=== PATIENT | female | born 1940 | race Caucasian/White ===

== ENCOUNTER → 2017-04-01 | Outpatient (CLI) | payer MEDICARE ==
--- NOTE | 2017-04-02 14:16 | MM ---
Reason for exam: screening (asymptomatic). Last mammogram was performed 1 year ago. History: Patient is postmenopausal and history of other cancer. Family history of breast cancer in mother at age 60. Excisional biopsy of the right breast. Took estrogen for 20 years. Physical Findings: A clinical breast exam by your physician is recommended on an annual basis and results should be correlated with mammographic findings. MG Screening Mammo w CAD Bilateral CC and MLO view(s) were taken. Prior study comparison: March 29, 2016, bilateral MG 3d screening mammo w/cad. February 10, 2015, bilateral MG 3d diag mammo w/cad NAZANIN. There are scattered fibroglandular densities. No significant changes when compared with prior studies. ASSESSMENT: Benign, BI-RAD 2 RECOMMENDATION: Routine screening mammogram of both breasts in 1 year.
== END | disposition home or self-care (01) ==
LOC: RADMAMWWP 11:34
PROVIDERS: ATTEND Internal Medicine Geriatric Medicine
DX: Z12.31 Encounter for screening mammogram for malignant neoplasm of breast (principal)

== ENCOUNTER → 2017-04-09 | Outpatient (CLI) | payer MEDICARE ==
[2017-04-09 12:58] LABS: Blood Urea Nitrogen 18 mg/dL (7-17); Non-African American GFR(MDRD) >60 (>60 ml/min/1.73 sqM)
--- NOTE | 2017-04-09 14:23 | CT ---
EXAMINATION TYPE: CT abdomen w con DATE OF EXAM: 04/09/2017 COMPARISON: NONE INDICATION: RUQ pain hx of hemangioma. Hemangioma protocol. Prior on 09.12.10. DLP: 938.7 mGycm, Automated exposure control for dose reduction was used. CONTRAST: 100ml mL of Omnipaque 300. Study performed with Oral Contrast TECHNIQUE: Axial images were obtained from above the diaphragm to the pubic rami in the axial plane a t 5 mm thick sections. Reconstructed images are reviewed on the computer in the coronal plane. FINDINGS: Limited CT sections are obtained the lung bases. The lung bases are clear. Coronary artery calcific ation is present. Small hiatal hernia is not excluded. CT ABDOMEN: Liver: Pre and postcontrast imaging is performed through the liver. Hemangioma protocol was utilized. There is a irregular peripherally enhancing area within the inferior right lobe liver. On delayed ketty ges this area has homogenous enhancement and is estimated to measure 3.1 x 2.5 cm in size. This area appears stable in transverse dimension size although larger in AP dimension from the images of 2010 a nd can be compatible with a hemangioma. Spleen: Normal Pancreas: Normal Adrenal glands: The adrenal glands are normal. Gallbladder: Surgically absent. Kidneys: No masses are evident. No hydronephrosis is present. Next renal pelvis is present on the r ight No cysts are present. Delayed images were obtained through the kidneys, which remain unremarkab le. Aorta: Vascular calcification is within the aorta. Inferior vena cava: Normal. Loops of bowel with oral contrast appear unremarkable. There are some loops of bowel with incomplete distention with oral contrast limiting their evaluation. IMPRESSIONS: 1. AP dimension of the suspected hemangioma within the inferior right lobe liver is slightly larger from 2011. However, findings appear compatible with hemangioma with a stable transverse dimension ove r the interval.
== END | disposition home or self-care (01) ==
LOC: RADCTMAIN 12:17
PROVIDERS: ATTEND Internal Medicine Geriatric Medicine
DX: R10.84 Generalized abdominal pain (principal)
CPT/HCPCS: 82565; 84520; 74160; 36415; Q9967

== ENCOUNTER → 2018-05-15 | Outpatient (CLI) | payer MEDICARE ==
--- NOTE | 2018-05-16 10:39 | MM ---
Reason for exam: screening (asymptomatic). Last mammogram was performed 1 year and 1 month ago. History: Patient is postmenopausal and history of other cancer. Family history of breast cancer in mother at age 60. Excisional biopsy of the right breast. Took estrogen for 20 years. Physical Findings: A clinical breast exam by your physician is recommended on an annual basis and results should be correlated with mammographic findings. MG Screening Mammo w CAD Bilateral CC and MLO view(s) were taken. Prior study comparison: April 01, 2017, bilateral MG screening mammo w CAD. March 29, 2016, bilateral MG 3d screening mammo w/cad. The breast tissue is heterogeneously dense. This may lower the sensitivity of mammography. There are benign appearing round vascular calcifications bilaterally. There is no discrete abnormality. ASSESSMENT: Benign, BI-RAD 2 RECOMMENDATION: Routine screening mammogram of both breasts in 1 year.
== END | disposition home or self-care (01) ==
LOC: RADMAMWWP 12:40
PROVIDERS: ATTEND Internal Medicine Geriatric Medicine
DX: Z12.31 Encounter for screening mammogram for malignant neoplasm of breast (principal)
CPT/HCPCS: 77067

== ENCOUNTER → 2020-02-23 | Outpatient (CLI) | payer MEDICARE ==
--- NOTE | 2020-02-24 13:14 | MM ---
Reason for exam: screening (asymptomatic). Last mammogram was performed 1 year and 9 months ago. History: Patient is postmenopausal and history of other cancer. Family history of breast cancer in mother at age 60. Excisional biopsy of the right breast. Took estrogen for 20 years. Physical Findings: A clinical breast exam by your physician is recommended on an annual basis and results should be correlated with mammographic findings. MG Screening Mammo w CAD Bilateral CC and MLO view(s) were taken. Prior study comparison: May 15, 2018, bilateral MG screening mammo w CAD. April 01, 2017, bilateral MG screening mammo w CAD. There are scattered fibroglandular densities. Global asymmetry subareolar right breast unchanged. Benign oil cyst calcifications. No significant changes when compared with prior studies. ASSESSMENT: Negative, BI-RAD 1 RECOMMENDATION: Routine screening mammogram of both breasts in 1 year.
== END | disposition home or self-care (01) ==
LOC: RADMAMWWP 13:26
PROVIDERS: ATTEND Internal Medicine Geriatric Medicine
DX: Z12.31 Encounter for screening mammogram for malignant neoplasm of breast (principal)
CPT/HCPCS: 77067

== ENCOUNTER 2021-04-05 10:05 | Day surgery (SDC) | payer MEDICARE ==
[2021-04-04 08:47] VITALS: BMI 23.9
[~2021-04-05 10:05] MED LIST: DEXAMETHASONE SOD PHOSPHATE 4 MG/ML 1 ML VIAL IV ONE; FAMOTIDINE 20 MG/2 ML VIAL IV PRN; HYDROmorphone 0.5 MG/0.5 ML SYRINGE IVP PRN; LACTATED RINGERS 1,000 ML IV SCH
[2021-04-05 11:09] LABS: Glucose,Whole Blood 105 mg/dL (75-99)
[2021-04-05] MEDS ORDERED: LIDOCAINE 1% (10MG/ML) FOR IV START INTRADERMA ONE (11:12)
[2021-04-05] MEDS: ONDANSETRON 4 MG/2 ML VIAL IVP PRN ×2 (11:12→15:35)
[2021-04-05] MEDS ORDERED: PROPOFOL 10 MG/ML 20 ML VIAL IV ONE (12:51)
[2021-04-05] MEDS ORDERED: fentaNYL (PF) 50 MCG/ML 2 ML AMP ONE (12:51)
[2021-04-05] MEDS ORDERED: LIDOCAINE 1% INJ 10MG/ML (20 ML MDV) ONE (12:51)
[2021-04-05] MEDS ORDERED: MIDAZOLAM 2 MG/2 ML VIAL ONE (12:51)
[2021-04-05] MEDS ORDERED: SUCCINYLCHOLINE CHLORIDE 100 MG/5 ML SYR IV ONE (12:51)
[2021-04-05] MEDS ORDERED: HYDROmorphone (PF) 1 MG/ML ONE (12:51)
[2021-04-05] MEDS ORDERED: ePHEDrine 50 MG/ML 1 ML AMP ONE (12:51)
[2021-04-05] MEDS ORDERED: LIDOCAINE 1% INJ 10MG/ML (20 ML MDV) SQ ONE ×2 (13:23)
[2021-04-05] MEDS ORDERED: LACTATED RINGERS 1,000 ML IV ONE (13:39)
[2021-04-05] MEDS ORDERED: BACITRACIN ZINC 500 UNIT/GM OINT 28.4 GM TUBE TOPICAL ONE (14:44)
--- NOTE | 2021-04-05 14:55 | P.OP ---
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 Fine-needle aspiration showed pleomorphic adenoma and she has elected to proceed with submandibular gland excision Operative Findings: Approximate 3 cm well encapsulated left submandibular gland inferiorly and laterally adjacent to the marginal mandibular branch of facial nerve Description of Procedure: The patient was brought in the operative suite and placed in a supine position. The patient underwent induction of general anesthesia with oral endotracheal intubation without difficulty. The patient was prepped and draped in usual aseptic fashion after the NIM II facial nerve monitor was placed and tested. This tested appropriately. 1% lidocaine with 1-100,000 epinephrine was infused subcutaneously at the incision site left lateral neck. A left lateral neck transverse incision was made 2.5 fingerbreadths below the mandible and was carried sharply through the skin and subcutaneous tissue and platysma layer. The inferior aspect of the submandibular gland was identified and dissection then continued medially down to the deep muscular layer. The lateral aspect of the dissection then continued from inferior to superior identifying the marginal mandibular branch of facial nerve which was dissected from the underlying submandibular gland and the mass itself. This was closely approximated to the mass at the nerve was dissected free from the tumor grossly intact under magnification and was reflected superiorly with the overlying fascia. Dissection then continued on the superior aspect as well as posterior and anterior aspect of the submandibular gland. Wall approaching the medial aspect of the gland the lingual nerve was identified and the defect aspect of the lingual nerve at the margin of the gland was doubly clamped divided and ligated leaving the lingual nerve intact. Deep to the submandibular gland the hypoglossal nerve was identified and preserved with its fashion. The submandibular duct was then identified and was doubly clamped divided and ligated. Once this was completed hemostasis was noted to be good. Copious sterile sterile normal saline was utilized to irrigate the wound good hemostasis continuing. The marginal mandibular branch of facial nerve was damaged and was intact and stimulated well at 0.5 mA with the facial nerve stimulator. A 1/4 inch [place] drain was then placed through the anterior aspect of the incision. The platysma and subcutaneous layers were closed with inverted interrupted 3-0 Vicryl suture and the skin was closed with running locking and simple interrupted 4-0 Prolene suture. The drain was secured with a separate 4-0 Prolene suture. Situation ointment and a light pressure dressing was then placed. The patient was then allowed to emerge from general anesthesia having tolerated procedure well was extubated in the operating suite and transferred to the postop recovery area in satisfactory condition.
[2021-04-05 15:23] VITALS: TEMP 97.2
[2021-04-05 16:08] VITALS: RESP 16
[2021-04-05] MEDS ORDERED: traMADol 50 MG TAB ONE (16:17)
[2021-04-05 17:01] VITALS: BP 132/74; PULSE 79
== END 2021-04-05 17:10 | disposition home or self-care (01) ==
LOC: OR 10:05
PROVIDERS: ATTEND Otolaryngology
DX: D11.7 Benign neoplasm of other major salivary glands (principal); K21.9 Gastro-esophageal reflux disease without esophagitis; E11.9 Type 2 diabetes mellitus without complications; I25.10 Atherosclerotic heart disease of native coronary artery without angina pectoris; I10 Essential (primary) hypertension; F41.9 Anxiety disorder, unspecified; F32.9 Major depressive disorder, single episode, unspecified; Z79.82 Long term (current) use of aspirin; Z79.899 Other long term (current) drug therapy; Z88.5 Allergy status to narcotic agent; Z95.5 Presence of coronary angioplasty implant and graft
CPT/HCPCS: 42440; J2250; J1100; J2405; J0690; J2001; J3010; J1170; J0330; J2704; 88307

== ENCOUNTER 2023-06-28 10:55 | Day surgery (SDC) | payer MEDICARE ==
[2023-06-25 09:25] VITALS: BMI 24.1
[~2023-06-28 10:55] MED LIST changes: +ALPRAZolam 0.5 MG TAB PO PRN; +ASPIRIN 325 MG TAB PO ONE; -DEXAMETHASONE SOD PHOSPHATE 4 MG/ML 1 ML VIAL IV ONE; -FAMOTIDINE 20 MG/2 ML VIAL IV PRN; +HEPARIN SODIUM,PORCINE (1 ML) 2,500 UNIT in SODIUM CHLORIDE 0.9% 250 ML IRRIGATION PRN; +HEPARIN SODIUM,PORCINE 10,000 UNIT in SODIUM CHLORIDE 0.9% 1,000 ML IRRIGATION PRN; -HYDROmorphone 0.5 MG/0.5 ML SYRINGE IVP PRN; -LACTATED RINGERS 1,000 ML IV SCH; +NITROGLYCERIN SL TABS 0.4 MG TAB SUBLINGUAL PRN; +SODIUM CHLORIDE 0.9% 1,000 ML in EMPTY BAG 1 BAG IV SCH
[2023-06-28] MEDS: SODIUM CHLORIDE 0.9% 1,000 ML IV ONE (11:11)
[2023-06-28] MEDS: ALPRAZolam 0.25 MG TAB PO PRN (11:25)
[2023-06-28 11:54] VITALS: RESP 16; TEMP 97.5
[2023-06-28] MEDS: MIDAZOLAM 2 MG/2 ML VIAL IVP ONE (13:54)
[2023-06-28] MEDS: LIDOCAINE 1% INJ 10MG/ML (20 ML MDV) SQ ONE (13:55)
[2023-06-28] MEDS: VERAPAMIL SYRINGE (5 MG/10 ML) INTRAARTER ONE (13:56)
[2023-06-28] MEDS: HEPARIN SODIUM 1,000 UN/ML (10ML VL) IV ONE (14:03)
[2023-06-28] MEDS: fentaNYL (PF) 50 MCG/ML 2 ML AMP IVP ONE (14:08)
[2023-06-28] MEDS: IOPAMIDOL-370 100ML BTL INJ ONE (14:09)
[2023-06-28] MEDS ORDERED: RX INFO: IV CONTRAST WAS GIVEN 1 EACH MISC MISCELLANE PRN (14:13)
[2023-06-28 17:42] VITALS: BP 132/62; PULSE 66
--- NOTE | 2023-06-28 18:34 | P.PCN ---
Date of Procedure: 06/28/23 Operative Findings: CARDIAC CATHETERIZATION PERFORMING PHYSICIAN: Jarett Pantoja MD, RPVI PROCEDURE PERFORMED: 1. Selective right and left coronary angiogram 2. Ultrasound-guided access of the right radial artery INDICATION: Symptomatic 83-year-old female patient who underwent myocardial perfusion imagi ng stress test came in to be abnormal showing ischemia. The patient is known to have CAD with prior stenting of the LAD COMPLICATION: None APPROACH: Right radial artery LEVEL OF SEDATION: Moderate with a sedation length of 12 minutes PROCEDURE DESCRIPTION: After obtaining an informed consent, the patient was brought to cardiac clinical lab clerk. Local anesthesia was performed using lidocaine subcutaneously. The right radial artery was cannulated using Seldinger technique, the guidewire passed easily, following that we advanced a 5-Romanian sheath dilator assembly, the wire and dilator were removed and sheath was flushed. Following that, 2 mg of verapamil along with 5000 unit heparin were given. Selective right and left coronary angiogram using a 6-Romanian JR4 and JL 3.5 catheters. The procedure was completed there was no complication. SELECTIVE CORONARY ANGIOGRAM: The right coronary artery: Large-caliber vessel and a dominant vessel and appears to be angiographically normal Left main: Is angiographically normal. The left circumflex: Large-caliber vessel nondominant vessel and is normal. Gives rise into the first and second obtuse marginal branches and they appear to be normal The left anterior descending artery: Large-caliber vessel. The LAD is stented in the midportion and the stent appears to be patent. The LAD gives rise into a diagonal branch which seems to be normal as well CONCLUSION: 1. Patent stent in the mid left anterior descending artery POSTPROCEDURE MANAGEMENT: Medical treatment
== END 2023-06-28 17:23 | disposition home or self-care (01) ==
LOC: CATHCVL 10:55
PROVIDERS: ATTEND Internal Medicine Interventional Cardiology
DX: I25.10 Atherosclerotic heart disease of native coronary artery without angina pectoris (principal); I10 Essential (primary) hypertension; E78.5 Hyperlipidemia, unspecified; F17.210 Nicotine dependence, cigarettes, uncomplicated; Z95.5 Presence of coronary angioplasty implant and graft; Z79.82 Long term (current) use of aspirin; Z79.899 Other long term (current) drug therapy
CPT/HCPCS: 93454; 76937; C1769 ×2; C1894; J2250; J2001; J3010; J1644; Q9967

== ENCOUNTER 2024-02-04 07:46 | Day surgery (SDC) | payer MEDICARE ==
[~2024-02-04 07:46] MED LIST changes: -ALPRAZolam 0.5 MG TAB PO PRN; -ASPIRIN 325 MG TAB PO ONE; -HEPARIN SODIUM,PORCINE (1 ML) 2,500 UNIT in SODIUM CHLORIDE 0.9% 250 ML IRRIGATION PRN; -HEPARIN SODIUM,PORCINE 10,000 UNIT in SODIUM CHLORIDE 0.9% 1,000 ML IRRIGATION PRN; +LIDOCAINE 1% (10MG/ML) FOR IV START INTRADERMA PRN; -NITROGLYCERIN SL TABS 0.4 MG TAB SUBLINGUAL PRN; -SODIUM CHLORIDE 0.9% 1,000 ML in EMPTY BAG 1 BAG IV SCH
[2024-02-04 08:15] VITALS: TEMP 97.6
[2024-02-04] MEDS: IV FLUID CONTINUATION 1,000 ML IV ONE (08:30)
[2024-02-04] MEDS: LACTATED RINGERS 1,000 ML IV SCH (08:30)
[2024-02-04] MEDS: MIDAZOLAM 2 MG/2 ML VIAL IV ONE (08:34)
[2024-02-04 08:37] LABS: Glucose,Whole Blood 129 mg/dL (70-110)
[2024-02-04] MEDS: ONDANSETRON 4 MG/2 ML VIAL IVP PRN (08:59)
[2024-02-04] MEDS ORDERED: PROPOFOL 10 MG/ML 20 ML VIAL IV ONE (09:01)
--- NOTE | 2024-02-04 09:18 | P.PCN ---
Date of Procedure: 02/04/24 Procedure(s) Performed: BRIEF HISTORY: Patient is a 84-year-old pleasant white female scheduled for an elective colonoscopy as a part of screening for colon cancer. PROCEDURE PERFORMED: Colonoscopy with biopsy. PREOPERATIVE DIAGNOSIS: Screening for colon cancer. IV sedation per Anesthesia. PROCEDURE: After informed consent was obtained, the patient, was brought into the endoscopy unit. IV sedation was administered by Anesthesia under continuous monitoring. Digital rectal examination was normal. Initially the Olympus CF-160 flexible video colonoscope was then inserted in the rectum, gradually advanced into the cecum without any difficulty. Careful examination was performed as the scope was gradually being withdrawn. Ileocecal valve and the appendiceal orifice were visualized and appeared normal. Prep was excellent. Mucosa of the cecum, ascending colon, transverse colon, normal. The descending colon there was a 3 mm polyp that was removed by cold biopsy. Scattered left-sided diverticulosis seen. Rest of the descending colon, sigmoid colon, and rectum appeared normal. Retroflexion was performed in the rectum and no lesions were seen. The patient tolerated the procedure well. IMPRESSION: 3 mm descending colon polyp status post cold biopsy Scattered sigmoid diverticulosis RECOMMENDATIONS: Findings of this examination were discussed with the patient as well as her family. She was advised to follow-up with the biopsy results. Continue with a high-fiber diet and fiber supplements on a regular basis.
[2024-02-04 09:23] VITALS: RESP 16
[2024-02-04 09:58] VITALS: BP 112/62; PULSE 73
== END 2024-02-04 10:24 | disposition home or self-care (01) ==
LOC: ORWHC2ENDO 07:46
PROVIDERS: ATTEND Internal Medicine Gastroenterology
CPT/HCPCS: 45380; 88305

== ENCOUNTER → 2024-02-24 | Outpatient (CLI) | payer MEDICARE ==
--- NOTE | 2024-02-24 14:23 | CT ---
EXAMINATION TYPE: CT left knee - [facility] Protocol DATE OF EXAM: 02/24/2024 2:09 PM COMPARISON: . None CLINICAL INDICATION: Female, 84 years old with history of M17.12 UNILATERAL PRIMARY OSTEOARTHRITIS, L EFT KNE; [facility], [facility] protocol left knee TECHNIQUE: Axial images were obtained of the CT left knee - [facility] Protocol, Additional coronal and sag ittal reformatted images and soft tissue and bone window were obtained for review. . Contrast used: mL of , (None if empty) Oral contrast used: (None if empty) CT DLP: 569 mGycm, Automated exposure control for dose reduction was used. FINDINGS: The visualized portion of the hips demonstrate mild to moderate osteoarthrosis changes with osteophyte formation of the acetabulum. No acute intrapelvic process. The bony structures of the pel vis are intact. The visualized knee demonstrates osteophyte formation of the tibial plateau, the patella and femoral condyles. There is severe medial joint space narrowing and subchondral sclerosis. No evidence of fra cture. Visualized ankle demonstrates multifocal osteoarthrosis changes with osteophyte formation and mild bobbi int space narrowing. No evidence of fractures. The uterus is surgically absent. Moderate amount of stool throughout the colon. IMPRESSION: End-stage osteoarthrosis changes of the knee. [facility], , 02/24/2024 2:20 PM
== END | disposition home or self-care (01) ==
LOC: RADCTMAIN 13:07
PROVIDERS: ATTEND Orthopaedic Surgery
DX: M17.12 Unilateral primary osteoarthritis, left knee (principal); E11.9 Type 2 diabetes mellitus without complications

== ENCOUNTER → 2024-03-03 | Outpatient (CLI) | payer MEDICARE ==
[2024-03-03 13:30] LABS: Partial Thromboplastin Time 22.2 sec (22.0-30.0); Prothrombin Time 10.8 sec (10.0-12.5)
[2024-03-03 19:43] LABS: ALT 13 U/L (8-44); AST 24 U/L (13-35); Albumin 4.2 g/dL (3.8-4.9); Alkaline Phosphatase 78 U/L (41-126); BUN/Creat Ratio 18.43 Ratio (12.00-20.00); Blood Urea Nitrogen 12.9 mg/dL (9.0-27.0); Calcium 9.5 mg/dL (8.7-10.3); Carbon Dioxide 26.1 mmol/L (21.6-31.8); Chloride 105 mmol/L (96-109); Glucose 185 mg/dL (70-110); Potassium 3.8 mmol/L (3.5-5.5); Sodium 143 mmol/L (135-145); Total Bilirubin 0.5 mg/dL (0.3-1.2); Total Protein 6.2 g/dL (6.2-8.2)
== END | disposition home or self-care (01) ==
LOC: LABPAT 12:18
PROVIDERS: ATTEND Orthopaedic Surgery
DX: Z01.818 Encounter for other preprocedural examination (principal); Z22.322 Carrier or suspected carrier of Methicillin resistant Staphylococcus aureus; M17.12 Unilateral primary osteoarthritis, left knee
CPT/HCPCS: 80053; 85027; 85610; 85730; 87070; 93005

== ENCOUNTER → 2024-03-16 | Outpatient (CLI) | payer MEDICARE | END | disposition home or self-care (01) | LOC: LABWHC1 15:20 | PROVIDERS: ATTEND Orthopaedic Surgery | DX: Z01.812 Encounter for preprocedural laboratory examination (principal); Z22.322 Carrier or suspected carrier of Methicillin resistant Staphylococcus aureus | CPT/HCPCS: 83036 ==

== ENCOUNTER 2024-03-27 05:36 | Day surgery (SDC) | payer MEDICARE ==
[2024-03-27] MEDS ORDERED: LIDOCAINE 1% (10MG/ML) FOR IV START INTRADERMA PRN (05:48)
[2024-03-27] MEDS ORDERED: TRANEXAMIC 1,000 MG/100ML-NACL 1,000 MG in SALINE 1 100ML.BAG IV PRN (06:00)
[2024-03-27] MEDS ORDERED: TRANEXAMIC 1,000 MG/100ML-NACL 1,000 MG in SALINE 1 100ML.BAG IVPB PRN (06:00)
[2024-03-27] MEDS: LACTATED RINGERS 1,000 ML IV ONE (06:02)
[2024-03-27 06:21] LABS: Glucose,Whole Blood 133 mg/dL (70-110)
[2024-03-27] MEDS: ACETAMINOPHEN TAB 500 MG TAB PO PRN (06:30)
[2024-03-27] MEDS: oxyCODONE ER 10 MG TAB.ER.12H PO PRN (06:30)
[2024-03-27] MEDS: DEXAMETHASONE SOD PHOSPHATE 10 MG/ML 1 ML VIAL IV PRN (06:31)
[2024-03-27] MEDS: LACTATED RINGERS 1,000 ML IV SCH (06:31)
[2024-03-27] MEDS: ONDANSETRON 4 MG/2 ML VIAL IVP PRN (06:31)
[2024-03-27] MEDS: FAMOTIDINE 20 MG/2 ML VIAL IVP PRN (06:31)
[2024-03-27] MEDS: KETOROLAC 15 MG/ML 1 ML VIAL IVP PRN (06:31)
[2024-03-27] MEDS: DOCUSATE 100 MG CAP PO PRN (06:31)
[2024-03-27] MEDS: MIDAZOLAM 2 MG/2 ML VIAL IV ONE (06:44)
[2024-03-27] MEDS ORDERED: PROPOFOL 10 MG/ML 20 ML VIAL IV ONE (07:00)
[2024-03-27] MEDS ORDERED: MIDAZOLAM 2 MG/2 ML VIAL ONE (07:00)
[2024-03-27] MEDS ORDERED: DEXAMETHASONE SOD PHOSPHATE 4 MG/ML 1 ML VIAL ONE (07:00)
[2024-03-27] MEDS ORDERED: TRANEXAMIC 1,000 MG/100ML-NACL PREMIX BAG ONE (07:00)
[2024-03-27] MEDS ORDERED: ROPIVACAINE 5 MG/ML 30 ML VIAL ONE (07:00)
[2024-03-27] MEDS ORDERED: HYDROmorphone 0.5 MG/0.5 ML SYRINGE IVP PRN ×2 (07:00→08:58)
[2024-03-27] MEDS: ROPIVACAINE/EPI/CLONIDINE/KET 50 ML SYRINGE MISCELLANE PRN (07:42)
[2024-03-27] MEDS ORDERED: HYDROcodone/APAP 5-325MG 1 EACH TAB PO PRN (08:58)
[2024-03-27] MEDS ORDERED: MAGNESIUM HYDROXIDE 2,400 MG/30 ML CUP PO PRN (08:58)
[2024-03-27] MEDS ORDERED: bisacodyL 10 MG SUPP RECTAL PRN (08:58)
[2024-03-27] MEDS ORDERED: NALOXONE 0.4 MG/ML 1 ML VIAL IV PRN (08:58)
[2024-03-27] MEDS ORDERED: hydrOXYzine pamoate 25 MG CAP PO PRN (08:58)
[2024-03-27] MEDS ORDERED: NA PHOS,M-B/NA PHOS,DI-BA 133 ML ENEMA RECTAL PRN (08:58)
[2024-03-27] MEDS ORDERED: ONDANSETRON 4 MG/2 ML VIAL IVP PRN (08:58)
--- NOTE | 2024-03-27 08:58 | P.OP ---
Date of Procedure: 03/27/24 Preoperative Diagnosis: severe left knee osteoarthritis Postoperative Diagnosis: same Procedure(s) Performed: 1. Left total knee arthroplasty 2. Computer assisted musculoskeletal navigation using CT/MRI images Implants: 1. Eliezer Triathlon CR Femur Size #2 2. Hagan Triathlon [place] Tibial Base Size #2 3. Hagan Triathlon CS poly Size #2, 11-mm 4. Hagan Triathlon all poly patella, Size #29 Anesthesia: NICKY, regional Surgeon: Lance Scott Public Relations #1: Momo Herrera Estimated Blood Loss (ml): 100 IV fluids (ml): 800 Pathology: none sent Condition: stable Disposition: PACU Indications for Procedure: I met with the patient preoperatively in the office setting and discussed treatment of their symptomatic knee arthritis. They failed a long course of nonsurgical treatment and elected to proceed with an elective total knee replacement. I discussed the potential risks and complications at length and gave them ample time to ask questions. Risks discussed included: risks from a nesthesia, superficial site surgical infection, acute and/or chronic periprosthetic joint infection, delayed wound healing, drainage, wound necrosis, instability, stiffness, stiffness requiring manipulation and/or revision surgery, damage to local blood vessels or nerves, aseptic loosening of the implants, extensor mechanism issues including disruption, patellar maltracking, avascular necrosis etc., continued or worsened knee pain, generalized dissatisfaction with surgical outcome, need for revision surgery, an inability to regain preinjury level of function, DVT, PE, other medical complications, and possibly loss of life or limb. The patient voiced their understanding that while these are the most common complications other less common complications are possible. They provided both their verbal and written consent to go forward with surgery. Operative Findings: Severe left knee arthritis Description of Procedure: The patient was identified in preoperative holding and the correct operative extremity was verified and marked with a marker. I reviewed the consent form with the patient at length. All of their questions were answered. The patient was given a block by anesthesia. They were then brought back to the operating room. They were transferred onto the operating room table where a general anesthetic, preoperative antibiotics, and tranexamic acid were administered by anesthesia. A tourniquet was applied to the proximal aspect of the operative extremity. The contralateral extremity was padded under the heel and secured to the operating room table with a nonsterile blue towel and tape. The ipsilateral arm was carefully draped across the patient's chest and secured with a pillow and foam. A post was applied over the lateral aspect of the ipsilateral thigh and a bolster was placed under the ipsilateral foot. I verified that the operative extremity was stable and the knee was flexed to 90. The operative e xtremity was then placed in a leg lewis, nonsterile drapes were applied, and the extremity was prepped and draped sterilely in the standard sterile fashion. Prior to starting surgery timeout was performed identifying the correct patient, operative extremity, and procedure. The leg was then elevated, exsanguinated with an Esmarch bandage, and the tourniquet was inflated. An anterior midline incision was made sharply with a scalpel. Once I had dissected deep to the superficial fascial layer medial and lateral flaps were elevated. A medial parapatellar arthrotomy was created. Upon opening the knee joint there were diffuse arthritic changes in all 3 compartments. The anterior horn of the medial meniscus were sharply released and a medial release was performed around the posterior medial corner of the knee to facilitate retractor placement. The fat pad was excised with electrocautery. The patella was found to be severely arthritic and a provisional cut was made with a sagittal saw to facilitate mobilization of the extensor mechanism during the procedure. Remnants of the ACL and PCL were then excised from the notch. 4 mm pins were then placed within the incision in the medial distal femur and proximal tibia. Arrays were applied to the pins and I verified they were completely tightened. The knee was then registered with the Cameo robot and manipulations in implant position were made to balance the knee and opitmize implant position. Using the Michael robotic saw all cuts were made in accordance with our plan. After all bony fragments had been removed the cuts were verified with the planar probe. The tibia was then subluxed forward and sized. The knee was brought into flexion and a lamina pipe cleaning machine operator was placed to allow removal of the meniscal remnants both medially and laterally as well as posterior osteophytes. Local anesthetic was then infiltrated around the joint capsule. Trial implants were then placed within the knee. Range of motion and collateral ligament tension was then evaluated. Adjustments in implant size and position were then made accordingly. Once the knee was felt to be appropriately balanced the Michael pins were removed. The patella was then recut, sized, and punched. A trial patellar button was then placed. With the trial components in place, the patella tracked midline. The femur was then drilled and the trial component removed. The trial tibial component was then appropriately rotated, pinned, and prepared for the keel. All trial components were then removed from the knee. The knee was thoroughly irrigated with pulsatile lavage. Cement was prepared via vacuum mixing in a bowl on the back table. I then hand pressurized cement into the femur and tibia and placed the implants beginning with the tibial base tray and poly liner, femoral component, and finally the patellar button. All extruded cement was removed including from the pin sites. Once the cement had hardened the knee was evaluated one final time with the final polyethylene liner in place. The knee had full extension and flexion and felt stable to varus and valgus stress throughout the arc of motion. The tourniquet was released and with the tourniqu et down the patella tracked midline. All bleeders were controlled with electrocautery. The knee was then soaked for 3 minutes with a dilute Betadine soak. The knee was thoroughly irrigated using 3 L of sterile saline and pulsatile lavage. The extensor mechanism was then reapproximated using pop off Vicryl sutures followed by a running barbed suture. The knee was then closed in layers with a 0 strata fix for the deep fascial layer, 2-0 strata fix for the superficial subcutaneous layer and Monocryl and Steri-Strips for the skin. A sterile dressing was applied. I verified that all instrument, sponge, and sharp counts were correct. The patient was then transferred off the operating room table, extubated, and brought to recovery having tolerated the procedure well. Momo Herrera PA-C was required as a skilled assistant pressman for patient positioning, draping, exposure, retraction, closure of wound and application of dressing PLAN: The patient can weight-bear as tolerated on the operative extremity. DVT prophylaxis with aspirin 81 mg twice a day based on preoperative risk stratification. Internal medicine for perioperative medical management. 2 doses of post-operative antibiotics. Physical therapy for gait training. Follow-up in the office in 2 weeks for wound check and x-rays of the knee including an AP and lateral.
[2024-03-27 09:33] LABS: Glucose,Whole Blood 174 mg/dL (70-110)
--- NOTE | 2024-03-27 10:31 | XR ---
EXAMINATION TYPE: XR knee limited LT DATE OF EXAM: 03/27/2024 10:00 AM COMPARISON: None CLINICAL INDICATION: Female, 84 years old with history of Evaluation for Postop abnormality and align ment; PHH, pain TECHNIQUE: XR knee limited LT XX views submitted. FINDINGS: Status post total knee arthroplasty changes with hardware in appropriate alignment and in tact. No evidence of fracture. Subcutaneous lucencies and lucencies within the joint consistent with surgical changes. IMPRESSION: Status post total knee arthroplasty changes with hardware intact and appropriate alignment. No fractu res identified. [facility], , 03/27/2024 10:28 AM
[2024-03-27] MEDS: SODIUM CHLORIDE 0.9% 1,000 ML IV SCH (13:33)
[2024-03-27] MEDS: ASPIRIN 81 MG PO SCH (13:33)
[2024-03-27] MEDS: HYDROmorphone 0.5 MG/0.5 ML SYRINGE IVP PRN (15:53)
[2024-03-27] MEDS: HYDROcodone/APAP 10-325MG 1 EACH TAB PO PRN (18:08)
[2024-03-27] MEDS ORDERED: DEXTROSE 50% SYRINGE 50 ML IVP PRN ×2 (18:25)
[2024-03-27] MEDS ORDERED: diphenhydrAMINE 25 MG CAP PO PRN (18:26)
[2024-03-27 21:09] LABS: Glucose,Whole Blood 190 mg/dL (70-110)
[2024-03-27] MEDS: SENNOSIDES-DOCUSATE SODIUM 1 EACH TAB PO SCH (21:11)
[2024-03-27] MEDS: INSULIN ASPART (NovoLOG) 100 UNIT/ML VIAL SQ SCH (21:11)
[2024-03-27] MEDS: ALPRAZolam 0.25 MG TAB PO PRN (21:11)
[2024-03-27] MEDS: MELATONIN 3 MG TABLET PO SCH (21:11)
[2024-03-27] MEDS ORDERED: TEMAZEPAM 15 MG CAP PO PRN (22:00)
[2024-03-28 06:17] LABS: Glucose,Whole Blood 131 mg/dL (70-110)
[2024-03-28] MEDS: PANTOPRAZOLE 40 MG TABLET PO SCH (07:05)
--- NOTE | 2024-03-28 07:33 | P.PN ---
Subjective Progress Note Date: 03/28/24 She is doing well this morning. She has mild pain in her knee. No acute events per nursing. Objective - Vital Signs Vital signs: Vital Signs Temp 97.5 F L 03/28/24 07:00 Pulse 82 03/28/24 07:00 Resp 16 03/28/24 07:00 BP 116/66 03/28/24 07:00 Pulse Ox 94 L 03/28/24 07:00 FiO2 Intake & Output 03/27/24 03/28/24 03/28/24 18:59 06:59 18:59 Intake Total 850 Output Total 100 3 Balance 750 -3 Weight 63.4 kg Intake: IV 850 Output: Urine 3 Estimated Blood Loss 100 Other: # Voids 1 - Exam The patient is resting comfortably in a chair. A focused examination of the operative leg was conducted. On inspection there is a clean-appearing dressing over the knee with a small, dime size area of bleeding over the middle 1/3 of the dressing. There is no drainage or strike through. The thigh and calf are soft. Femoral nerve function is intact. Motor and sensory function are intact in the foot and ankle. The tips of the toes are warm and well perfused with brisk capillary refill. - Labs Labs: Abnormal Lab Results - Last 24 Hours (Table) 03/27/24 03/27/24 03/28/24 Range/Units 09:32 21:07 06:13 POC Glucose (mg/dL) 174 H 190 H 131 H (70-110) mg/dL Assessment and Plan Assessment: POD#1 s/p Left TKA Plan: 1. Weightbearing as tolerated on the operative extremity. Up with assistance. 2. DVT prophylaxis with aspirin 81 mg twice a day 3. Physical therapy for gait training and mobilization 4. Internal medicine for perioperative medical management 5. PT for gait training 6. Disposition: The patient is 84 and lives alone. She would likely benefit from discharged to SNF/Rehab. Likely on SATURDAY Time with Patient: Greater than 30
[2024-03-28] MEDS: DULoxetine HCL 20 MG CAPSULE.DR PO SCH (08:05)
[2024-03-28 09:43] LABS: Basophils # (A) 0.01 X 10*3/uL (0.00-0.10); Basophils % (A) 0.1 %; Eosinophils # (A) 0 X 10*3/uL (0.04-0.35); Eosinophils % (A) 0 %; HCT 34.7 % (37.2-46.3); HGB 11.1 g/dL (12.0-15.0); Lymphocytes # (A) 0.54 X 10*3/uL (0.90-5.00); Lymphocytes % (A) 6.5 %; MCH 27.5 pg (27.0-32.0); MCV 85.9 FL (80.0-97.0); Mean Platelet Volume 9.8 FL (9.5-12.2); Monocytes # (A) 0.62 X 10*3/uL (0.20-1.00); Monocytes % (A) 7.5 %; NRBC Per 100 WBC 0 X 10*3/uL (0.00-0.01); Neutrophils # (A) 7.12 X 10*3/uL (1.80-7.70); Neutrophils % (A) 85.5 %; Platelet Count 134 X 10*3/uL (140-440); RBC 4.04 X 10*6/uL (4.10-5.20); RDW 13.5 % (11.5-14.5); WBC 8.32 X 10*3/uL (4.50-10.00)
[2024-03-28 11:29] LABS: Glucose,Whole Blood 107 mg/dL (70-110)
--- NOTE | 2024-03-28 13:25 | P.CONS ---
History of Present Illness - Reason for Consult Consult date: 03/28/24 Medical management - History of Present Illness History of present illness; patient is a 84-year-old lady with past medical history significant for hypertension, hyperlipidemia, osteoarthritis who presented to the hospital for elective left knee arthroplasty. Patient has been following up outpatient with orthopedics for left knee pain, all conservative measures have been tried without any improvement. Case was discussed and patient was scheduled for left total knee arthroplasty. Patient with the procedure on 03/27. Postoperatively internal medicine team were consulted for medical management REVIEW OF SYSTEMS: CONSTITUTIONAL: No fever, no malaise, no fatigue. HEENT: No recent visual problems or hearing problems. Denied any sore throat. CARDIOVASCULAR: No chest pain, orthopnea, PND, no palpitations, no syncope. PULMONARY: No shortness of breath, no cough, no hemoptysis. GASTROINTESTINAL: No diarrhea, no nausea, no vomiting, no abdominal pain. NEUROLOGICAL: No headaches, no weakness, no numbness. HEMATOLOGICAL: Denies any bleeding or petechiae. GENITOURINARY: Denies any burning micturition, frequency, or urgency. MUSCULOSKELETAL/RHEUMATOLOGICAL: Left knee pain ENDOCRINE: Denies any polyuria or polydipsia. The rest of the 14-point review of systems is negative. PHYSICAL EXAMINATION: GENERAL: The patient is alert and oriented x3, not in any acute distress. Well developed, well nourished. HEENT: Pupils are round and equally reacting to light. EOMI. No scleral icterus. No conjunctival pallor. Normocephalic, atraumatic. No pharyngeal erythema. No thyromegaly. CARDIOVASCULAR: S1 and S2 present. No murmurs, rubs, or gallops. PULMONARY: Chest is clear to auscultation, no wheezing or crackles. ABDOMEN: Soft, nontender, nondistended, normoactive bowel sounds. No palpable organomegaly. MUSCULOSKELETAL left knee surgical incision seen EXTREMITIES: No cyanosis, clubbing, or pedal edema. NEUROLOGICAL: Gross neurological examination did not reveal any focal deficits. SKIN: No rashes. Assessment and plan Left knee osteoarthritis status post left total knee arthroplasty Hypertension Hyperlipidemia Monitor vital signs Monitor CBC Monitor CMP Continue pain management per orthopedics Continue DVT prophylaxis per orthopedics Resume home meds, hold blood pressure medication as patient is currently normotensive. Will reintroduce blood pressure medications as tolerated PT and OT consulted Labs and medication were reviewed.. Continue same treatment. Continue with symptomatic treatment. Resume home medication. Monitor labs and vitals. DVT and GI prophylaxis. Further recommendations as per clinical course of the patient Dictation was produced using [employer] dictation software. please excuse any grammatical, word or spelling errors. 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 colon polyps, frequent bloating, diarrhea, hemangioma on liver Last Myocardial Infarction Date:: History of Any Multi-Drug Resistant Organisms: None Reported Past Surgical History: Bladder Surgery, Bowel Resection, Heart Catheterization With Stent, Hernia Repair, Hysterectomy, Tonsillectomy Additional Past Surgical History / Comment(s): LEFT PAROTID TUMOR, BLADDER SUSPENSION. 3 cardiac stents, cystocele/rectocele repair, parveen cataracts Past Anesthesia/Blood Transfusion Reactions: Family History of Problems w/ Anesthesia, Motion Sickness, Postoperative Nausea & Vomiting (PONV) Additional Past Anesthesia/Blood Transfusion Reaction / Comm: STATES NAUSEA AND VOMITING WITH ANESTHESIA FOR PT AND HER FAMILY. no hx blood transfusion Date of Last Stent Placement:: 06/2016 Past Psychological History: Anxiety Smoking Status: Former smoker Past Alcohol Use History: Occasional Additional Past Alcohol Use History / Comment(s): quit smoking age [age] years ago, smoked for 10 yrs Past Drug Use History: None Reported - Past Family History Mother Family Medical History: Cancer Additional Family Medical History / Comment(s): breast CA Medications and Allergies Home Medications Medication Instructions Recorded Confirmed Type ALPRAZolam [Xanax] 0.125 mg PO HS 01/19/14 03/27/24 History Aspirin [Adult Low Dose Aspirin EC] 81 mg PO DAILY 04/04/21 03/27/24 History Bisoprolol [Zebeta] 5 mg PO HS 04/04/21 03/27/24 History DULoxetine HCL [Cymbalta] 20 mg PO DAILY 04/04/21 03/27/24 History Furosemide [Lasix] 20 mg PO DAILY 04/04/21 03/27/24 History Losartan [Cozaar] 25 mg PO HS 04/04/21 03/27/24 History Melatonin 3 mg PO HS 04/04/21 03/27/24 History Omeprazole 20 mg PO Q2D 04/04/21 03/27/24 History Rosuvastatin Calcium [Crestor] 5 mg PO Q2D 04/04/21 03/27/24 History Rosuvastatin [Crestor] 10 mg PO Q2D 06/25/23 03/27/24 History diphenhydrAMINE [Benadryl] 25 mg PO HS 06/25/23 03/27/24 History Allergies Allergy/AdvReac Type Severity Reaction Status Date / Time meperidine HCl [From Demerol] AdvReac Unknown Nausea & Verified 03/27/24 06:56 Vomiting morphine AdvReac Nausea & Verified 03/27/24 06:56 Vomiting,"unable to speak" Physical Exam Vitals: Vital Signs Temp Pulse Resp BP Pulse Ox 03/28/24 07:00 97.5 F L 82 16 116/66 94 L 03/28/24 00:57 97.9 F 66 17 97/54 97 03/27/24 19:26 97.8 F 62 17 94/57 95 03/27/24 14:00 97.7 F 63 18 95/60 92 L 03/27/24 12:11 75 18 119/56 96 03/27/24 11:41 63 18 103/51 100 03/27/24 11:11 59 L 18 114/56 99 03/27/24 10:41 66 18 117/61 94 L 03/27/24 10:11 74 18 151/65 98 Intake and Output 03/27/24 03/28/24 03/28/24 22:59 06:59 14:59 Output Total 3 Balance -3 Output: Urine 3 Other: # Voids 1 Results CBC & Chem 7: 03/28/24 02:48 Labs: Abnormal Lab Results - Last 24 Hours (Table) 03/27/24 03/28/24 03/28/24 Range/Units 21:07 02:48 02:48 RBC 4.04 L (4.10-5.20) X 10*6/uL Hgb 11.1 L (12.0-15.0) g/dL Hct 34.7 L (37.2-46.3) % Plt Count 134 L (140-440) X 10*3/uL Lymphocytes # 0.54 L (0.90-5.00) X 10*3/uL Eosinophils # 0 L (0.04-0.35) X 10*3/uL POC Glucose (mg/dL) 190 H (70-110) mg/dL Hemoglobin A1c 6.6 H (<=6.0) % 03/28/24 Range/Units 06:13 RBC (4.10-5.20) X 10*6/uL Hgb (12.0-15.0) g/dL Hct (37.2-46.3) % Plt Count (140-440) X 10*3/uL Lymphocytes # (0.90-5.00) X 10*3/uL Eosinophils # (0.04-0.35) X 10*3/uL POC Glucose (mg/dL) 131 H (70-110) mg/dL Hemoglobin A1c (<=6.0) %
[2024-03-28 16:21] LABS: Glucose,Whole Blood 159 mg/dL (70-110)
[2024-03-28] MEDS: ATORVASTATIN 20 MG TAB PO SCH (20:27)
[2024-03-28 20:47] LABS: Glucose,Whole Blood 124 mg/dL (70-110)
[2024-03-29 06:21] LABS: Glucose,Whole Blood 121 mg/dL (70-110)
[2024-03-29] MEDS: PANTOPRAZOLE 40 MG TABLET PO SCH (07:42)
--- NOTE | 2024-03-29 11:12 | P.PN ---
Subjective Progress Note Date: 03/29/24 Principal diagnosis: Primary osteoarthritis left knee. Status post total left knee arthroplasty. This is an 84-year-old female who is status post total left knee arthroplasty. Today is postop day #2. She is awaiting rehab placement. She states that her pain is better managed today. She reports no fevers or chills. She has had some nausea but no vomiting or diarrhea. Objective - Vital Signs Vital signs: Vital Signs Temp 98.1 F 03/29/24 07:14 Pulse 82 03/29/24 10:42 Resp 17 03/29/24 07:14 BP 138/78 03/29/24 10:42 Pulse Ox 97 03/29/24 07:14 FiO2 Intake & Output 03/28/24 03/29/24 03/29/24 18:59 06:59 18:59 Other: # Voids 4 3 - Exam This is a pleasant 84-year-old female in no acute distress. She is alert and oriented x 3. Exam of the left knee reveals that her dressing is intact. There is a small, quarter sized amount of drainage about the midportion of the dressing which is stable from previous exam. She has full foot and ankle motion without difficulty or pain. Neurovascular status to the lower extremity is intact. - Labs CBC & Chem 7: 03/28/24 02:48 Labs: Abnormal Lab Results - Last 24 Hours (Table) 03/28/24 03/28/24 03/29/24 Range/Units 16:19 20:44 06:19 POC Glucose (mg/dL) 159 H 124 H 121 H (70-110) mg/dL Assessment and Plan (1) Primary localized osteoarthritis of left knee Current Visit: Yes Status: Acute Code(s): M17.12 - UNILATERAL PRIMARY OSTEOARTHRITIS, LEFT KNEE SNOMED Code(s): 174365541352162 (2) Status post total left knee replacement Current Visit: Yes Status: Acute Code(s): Z96.652 - PRESENCE OF LEFT ARTIFICIAL KNEE JOINT SNOMED Code(s): 9976818719168 Plan: The clinical findings are discussed with the patient. We are planning discharge to inpatient rehab tomorrow. Continue current care and physical therapy.
--- NOTE | 2024-03-29 11:58 | P.PN ---
Subjective Progress Note Date: 03/29/24 patient is a 84-year-old lady with past medical history significant for hypertension, hyperlipidemia, osteoarthritis who presented to the hospital for elective left knee arthroplasty. Patient has been following up outpatient with orthopedics for left knee pain, all conservative measures have been tried without any improvement. Case was discussed and patient was scheduled for left total knee arthroplasty. Patient with the procedure on 03/27. Postoperatively internal medicine team were consulted for medical management 03/29. Patient seen and examined. Blood pressure has improved, will resume b lood pressure medications. REVIEW OF SYSTEMS: CONSTITUTIONAL: No fever, no malaise,. CARDIOVASCULAR: No chest pain, no palpitations, no syncope. PULMONARY: No shortness of breath, no cough, GASTROINTESTINAL: No diarrhea, no nausea, no vomiting, no abdominal pain. NEUROLOGICAL: No headaches, no weakness, PHYSICAL EXAMINATION: GENERAL: The patient is alert and oriented x3, not in any acute distress. Well developed, well nourished. HEENT: Pupils are round and equally reacting to light. EOMI. No scleral icterus. No conjunctival pallor. Normocephalic, atraumatic. No pharyngeal erythema. No thyromegaly. CARDIOVASCULAR: S1 and S2 present. No murmurs, rubs, or gallops. PULMONARY: Chest is clear to auscultation, no wheezing or crackles. ABDOMEN: Soft, nontender, nondistended, normoactive bowel sounds. No palpable organomegaly. MUSCULOSKELETAL left knee surgical incision seen EXTREMITIES: No cyanosis, clubbing, or pedal edema. NEUROLOGICAL: Gross neurological examination did not reveal any focal deficits. SKIN: No rashes. Assessment and plan Left knee osteoarthritis status post left total knee arthroplasty Hypertension Hyperlipidemia Monitor vital signs Monitor CBC Monitor CMP Continue pain management per orthopedics Continue DVT prophylaxis per orthopedics Resume losartan, Lasix, bisoprolol PT and OT following Labs and medication were reviewed.. Continue same treatment. Continue with symptomatic treatment. Resume home medication. Monitor labs and vitals. DVT and GI prophylaxis. Further recommendations as per clinical course of the patient Dictation was produced using [employer] dictation software. please excuse any grammatical, word or spelling errors. Objective - Vital Signs Vital signs: Vital Signs Temp 98.1 F 03/29/24 07:14 Pulse 82 03/29/24 10:42 Resp 17 03/29/24 07:14 BP 138/78 03/29/24 10:42 Pulse Ox 97 03/29/24 07:14 FiO2 Intake & Output 03/28/24 03/29/24 03/29/24 18:59 06:59 18:59 Other: # Voids 4 3 - Labs CBC & Chem 7: 03/28/24 02:48 Labs: Abnormal Lab Results - Last 24 Hours (Table) 03/28/24 03/28/24 03/29/24 Range/Units 16:19 20:44 06:19 POC Glucose (mg/dL) 159 H 124 H 121 H (70-110) mg/dL
[2024-03-29 12:03] LABS: Glucose,Whole Blood 111 mg/dL (70-110)
--- NOTE | 2024-03-29 16:06 | P.ANPRN ---
Procedure Note - Anesthesia - Nerve Block Performed Left Adductor Canal Single Time Out Performed: Yes Date of Procedure: 03/27/24 Procedure Start Time: 06:43 Procedure Stop Time: 06:45 Location of Patient: PreOp (645) Indication: Acute Post-Operative Pain, Requested by Surgeon Sedation Type: Sedate with meaningful contact maintained Preparation: Sterile Prep Position: Supine Needle Types: Pajunk Needle Gauge: 21 Ultrasound used to visualize needle placement: Yes Ultrasound used to observe medication spread: Yes Blood Aspirated: No Pain Paresthesia on Injection Noted: No Resistance on Injection: Normal Image Stored and Saved: Yes Events: Uneventful and Well Tolerated (Ropivacaine 0.5% 20 cc plus dexamethasone 4 mg)
--- NOTE | 2024-03-29 16:07 | P.ANPRN ---
Procedure Note - Anesthesia - Nerve Block Performed Left iPack Single Time Out Performed: Yes Date of Procedure: 03/27/24 Procedure Start Time: 06:46 Procedure Stop Time: 06:48 Location of Patient: PreOp Indication: Acute Post-Operative Pain, Requested by Surgeon Sedation Type: Sedate with meaningful contact maintained Preparation: Sterile Prep Position: Supine Needle Types: Pajunk Needle Gauge: 21 Ultrasound used to visualize needle placement: Yes Ultrasound used to observe medication spread: Yes Blood Aspirated: No Pain Paresthesia on Injection Noted: No Resistance on Injection: Normal Image Stored and Saved: Yes Events: Uneventful and Well Tolerated (Ropivacaine 0.5% 20 cc plus dexamethasone 4 mg)
[2024-03-29 16:57] LABS: Glucose,Whole Blood 92 mg/dL (70-110)
[2024-03-29] MEDS: ATORVASTATIN 10 MG TAB PO SCH (21:29)
[2024-03-29] MEDS: LOSARTAN 25 MG TAB PO SCH (21:30)
[2024-03-29] MEDS: BISOPROLOL 5 MG TAB PO SCH (21:30)
[2024-03-29] MEDS: HYDROmorphone 0.5 MG/0.5 ML SYRINGE IVP PRN (21:48)
[2024-03-29 22:01] LABS: Glucose,Whole Blood 151 mg/dL (70-110)
[2024-03-30 06:48] LABS: Glucose,Whole Blood 124 mg/dL (70-110)
[2024-03-30 07:32] VITALS: RESP 18
[2024-03-30] MEDS: FUROSEMIDE 20 MG TAB PO SCH (08:04)
--- NOTE | 2024-03-30 08:26 | P.DS ---
Providers Date of admission: 03/27/2024 Attending physician: Lance Scott Consults: 03/27/24 08:58 Consult Physician Routine Consulting Provider: John Isaacs Reason/Comments: post op medical management Do you want consulting provider notified?: Yes Primary care physician: John Isaacs [facility] Course: This is a 84-year-old female patient who failed conservative management of her severe left knee osteoarthritis. On 03/27/2024 patient presented to preop for scheduled left total knee arthroplasty with Dr. Scott. Patient tolerated the procedure well. Patient was transferred to the orthopedic floor. Patient was evaluated by physical therapy and it was determined the patient would need rehab at time of discharge and I agree with this. Patient was examined at bedside this morning. Patient was awake, alert, and able to answer questions. Patient was sitting up in chair resting comfortably, no acute distress. Upon inspection of the left lower extremity there is generalized swelling in the left thigh and knee. Patient surgical dressing is clean, dry, intact, without surrounding erythema, with a quarter sized dried amount of strikethrough, no active drainage. Patient's left calf to soft to compression. Patient is able to plantarflex and dorsiflex her left ankle and toes without pain. Patient's foot appears well-perfused. Patient's pain has been controlled with oral [place] 10. Anticipate patient being transferred to rehab facility when approved by insurance. Patient is cleared to transfer from an orthopedic standpoint when cleared by medical team to transfer to rehab facility. Patient will have follow-up in 2 weeks. Paper prescription for [place] 10 was signed and opioid start form was completed and placed in patient's chart. Assessment: Status post left total knee arthroplasty for severe left knee osteoarthritis Left knee pain Multiple medical problems Plan - Discharge Summary Discharge Rx Participant: No New Discharge Prescriptions: New Aspirin 81 mg PO BID #60 tab HYDROcodone/APAP 10-325MG [[place] 10] 1 each PO Q6H PRN #32 tab PRN Reason: Pain Sennosides-Docusate Sodium [Senokot-S] 1 tab PO BID PRN #60 tablet PRN Reason: Constipation Ondansetron [Zofran] 4 mg PO Q6HR PRN #30 tab PRN Reason: Nausea No Action ALPRAZolam [Xanax] 0.125 mg PO HS Omeprazole 20 mg PO Q2D Losartan [Cozaar] 25 mg PO HS Bisoprolol [Zebeta] 5 mg PO HS Furosemide [Lasix] 20 mg PO DAILY Rosuvastatin Calcium [Crestor] 5 mg PO Q2D Aspirin [Adult Low Dose Aspirin EC] 81 mg PO DAILY Rosuvastatin [Crestor] 10 mg PO Q2D diphenhydrAMINE [Benadryl] 25 mg PO HS Melatonin 3 mg PO HS DULoxetine HCL [Cymbalta] 20 mg PO DAILY Discharge Medication List ALPRAZolam [Xanax] 0.125 mg PO HS 01/19/14 [History] Aspirin [Adult Low Dose Aspirin EC] 81 mg PO DAILY 04/04/21 [History] Bisoprolol [Zebeta] 5 mg PO HS 04/04/21 [History] DULoxetine HCL [Cymbalta] 20 mg PO DAILY 04/04/21 [History] Furosemide [Lasix] 20 mg PO DAILY 04/04/21 [History] Losartan [Cozaar] 25 mg PO HS 04/04/21 [History] Melatonin 3 mg PO HS 04/04/21 [History] Omeprazole 20 mg PO Q2D 04/04/21 [History] Rosuvastatin Calcium [Crestor] 5 mg PO Q2D 04/04/21 [History] Rosuvastatin [Crestor] 10 mg PO Q2D 06/25/23 [History] diphenhydrAMINE [Benadryl] 25 mg PO HS 06/25/23 [History] Aspirin 81 mg PO BID #60 tab 03/30/24 [Rx] HYDROcodone/APAP 10-325MG [[place] 10] 1 each PO Q6H PRN #32 tab 03/30/24 [Rx] Ondansetron [Zofran] 4 mg PO Q6HR PRN #30 tab 03/30/24 [Rx] Sennosides-Docusate Sodium [Senokot-S] 1 tab PO BID PRN #60 tablet 03/30/24 [Rx] Follow up Appointment(s)/Referral(s): Lance Scott MD [Medical Doctor] - 2 Weeks Activity/Diet/Wound Care/Special Instructions: 1. Weight-bear as tolerated on your operative extremity unless instructed otherwise. Use a walker or other assistive device to ambulate. 2. Leave surgical dressing in place. If your dressing becomes saturated with blood, there is drainage, or the dressing becomes loose please contact the office. 3. It is okay to shower with your surgical dressing, but do not submerge in water (no hot tubs, bath's, swimming etc.) 4. Take aspirin 81 mg twice daily for DVT prophylaxis x 30 days, then resume home aspirin 81 mg once a day. Make sure to take her blood clot prevention medication as prescribed (aspirin, Eliquis, Xarelto, and Plavix are commonly prescribed medications for blood clot prevention) 5. While taking [place] or Percocet for pain make sure you're taking a stool softener (Colace) and drink lots of water. 6. Keep all follow-up appointments as scheduled. You will usually be seen in 1-2 weeks following surgery. 7. Please contact the office with any questions or concerns [phone] Resume home omeprazole for GI prophylaxis. Discharge Disposition: TRANSFER TO SNF/ECF
[2024-03-30 08:49] LABS: Basophils # (A) 0.03 X 10*3/uL (0.00-0.10); Basophils % (A) 0.6 %; Eosinophils # (A) 0.06 X 10*3/uL (0.04-0.35); Eosinophils % (A) 1.2 %; HGB 10.9 g/dL (12.0-15.0); Lymphocytes # (A) 0.81 X 10*3/uL (0.90-5.00); Lymphocytes % (A) 15.6 %; MCH 27.8 pg (27.0-32.0); MCV 84.2 FL (80.0-97.0); Mean Platelet Volume 9.4 FL (9.5-12.2); Monocytes # (A) 0.74 X 10*3/uL (0.20-1.00); Monocytes % (A) 14.2 %; NRBC Per 100 WBC 0 X 10*3/uL (0.00-0.01); Neutrophils # (A) 3.54 X 10*3/uL (1.80-7.70); Platelet Count 135 X 10*3/uL (140-440); RBC 3.92 X 10*6/uL (4.10-5.20); RDW 13.9 % (11.5-14.5)
[2024-03-30 11:22] LABS: Glucose,Whole Blood 123 mg/dL (70-110)
[2024-03-30 13:51] VITALS: BP 102/61; PULSE 71; TEMP 98
[2024-03-30 16:09] LABS: Glucose,Whole Blood 105 mg/dL (70-110)
== END 2024-03-30 16:58 ==
LOC: OR 05:36 → 4SSUR 12:53 → OR 03-30 16:58
PROVIDERS: ATTEND Orthopaedic Surgery
DX: M17.12 Unilateral primary osteoarthritis, left knee (principal); E78.5 Hyperlipidemia, unspecified; F41.9 Anxiety disorder, unspecified; G89.18 Other acute postprocedural pain; I10 Essential (primary) hypertension; I25.10 Atherosclerotic heart disease of native coronary artery without angina pectoris; I25.2 Old myocardial infarction; K21.9 Gastro-esophageal reflux disease without esophagitis; H91.90 Unspecified hearing loss, unspecified ear; E11.9 Type 2 diabetes mellitus without complications; Z85.828 Personal history of other malignant neoplasm of skin; Z86.0100 Personal history of colon polyps, unspecified; Z87.891 Personal history of nicotine dependence; Z88.5 Allergy status to narcotic agent; Z90.710 Acquired absence of both cervix and uterus; Z95.5 Presence of coronary angioplasty implant and graft; Z98.890 Other specified postprocedural states; Z79.899 Other long term (current) drug therapy; Z79.82 Long term (current) use of aspirin
CPT/HCPCS: 0055T; 27447; 64447; 64999; 83036; 85025